=== PATIENT | male | born 1990 | race Caucasian/White ===

== ENCOUNTER 2017-04-01 12:15 | Emergency (ER) | payer SELFPAY ==
[2017-04-01] MEDS ORDERED: Lidocaine 2% Viscous Solution 15 ML Cup PO ONE (12:32)
[2017-04-01] MEDS ORDERED: Benzocaine 20% Topical Spray UD MUCMEM ONE (12:32)
--- NOTE | 2017-04-01 12:38 | EDM.PDOC ---
ED HPI GENERAL MEDICAL PROBLEM - General Chief Complaint: ENT Problem Stated Complaint: TOOTHACHE Time Seen by Provider: 04/01/17 12:33 Source of Information: Reports: Patient History Limitations: Reports: No Limitations - History of Present Illness INITIAL COMMENTS - FREE TEXT/NARRATIVE: HISTORY AND PHYSICAL: []27-year-old male presenting with tooth pain #32 History of Present Illness: []Patient was to the dentist 4 days ago and received antibiotics he has an appointment on 17 April for extraction presents because pain has been worsening and unable to sleep Review of Systems: As per history of present illness and below otherwise all systems reviewed and negative. Past medical history: As per history of present illness and as reviewed below otherwise noncontributory. Surgical history: As per history of present illness and as reviewed below otherwise noncontributory. Social history: No reported history of drug or alcohol abuse. Family history: As per history of present illness and as reviewed below otherwise noncontributory. Physical exam: Alert and oriented gentleman answering questions appropriately nontoxic in appearance HEENT: Atraumatic, normocehpalic, pupils reactive, negative for conjunctival pallor or scleral icterus, mucous membranes moist, throat clear, neck supple, nontender, trachea midline. Gumline is edematous and round tooth #32 Lungs: Clear to auscultation, breath sounds equal bilaterally, chest non tender. Heart: S1S2, regular, negative for clicks, rubs, or JVD. Abdomen: Soft, nondistended, nontender. Pelvis: Stable nontender. Genitourinary: Deferred. Rectal: Deferred Extremities: Atraumatic, negative for cords or calf pain. Neurovascular unremarkable. Neuro: Awake, alert, oriented. Cranial nerves II through XII unremarkable. Cerebellum unremarkable. Motor and sensory unremarkable throughout. Exam nonfocal. Diagnostics: [] Therapeutics: []Dental balls Impression: [Dental abscess] Plan: []Neurontin 300 mg 3 times a day when necessary Discharge to home Keep appointment with your dentist for tooth extraction Definitive disposition and diagnosis as appropriate pending reevaluation and review of above. Tooth/Teeth Pain Score (Numeric/FACES): 8 - Related Data Allergies Allergy/AdvReac Type Severity Reaction Status Date / Time No Known Allergies Allergy Verified 04/01/17 12:22 Home Meds: Home Meds Amoxicillin 250 mg PO DAILY 04/01/17 [History] Gabapentin [Neurontin] 300 mg PO TID #21 cap 04/01/17 [Rx] Past Medical History HEENT History: Reports: None Cardiovascular History: Reports: None Respiratory History: Reports: None Gastrointestinal History: Reports: Other (See Below) Other Gastrointestinal History: Ulcers Genitourinary History: Reports: None Musculoskeletal History: Reports: None Neurological History: Reports: None Psychiatric History: Reports: None Endocrine/Metabolic History: Reports: None Hematologic History: Reports: None Immunologic History: Reports: None Oncologic (Cancer) History: Reports: None Dermatologic History: Reports: None - Past Surgical History Head Surgeries/Procedures: Reports: None HEENT Surgical History: Reports: Tonsillectomy Cardiovascular Surgical History: Reports: None Respiratory Surgical History: Reports: None GI Surgical History: Reports: None Male Surgical History: Reports: None Endocrine Surgical History: Reports: None Neurological Surgical History: Reports: None Musculoskeletal Surgical History: Reports: None Oncologic Surgical History: Reports: None Dermatological Surgical History: Reports: None Social & Family History - Family History Family Medical History: Noncontributory - Tobacco Use Smoking Status *Q: Current Every Day Smoker Years of Tobacco use: 10 Packs/Tins Daily: 1 - Caffeine Use Caffeine Use: Reports: Coffee, Energy Drinks - Recreational Drug Use Recreational Drug Use: No ED ROS ENT - Review of Systems Review Of Systems: ROS reveals no pertinent complaints other than HPI. ED EXAM, ENT - Physical Exam Exam: See Below Course - Vital Signs Last Recorded V/S: Last Vital Signs Temp 36.6 C 04/01/17 12:23 Pulse 76 04/01/17 12:23 Resp 18 04/01/17 12:23 BP 150/95 H 04/01/17 12:23 Pulse Ox 97 04/01/17 12:23 - Orders/Labs/Meds Meds: Medications Discontinued Medications Generic Name Dose Route Start Last Admin Trade Name Freq PRN Reason Stop Dose Admin Benzocaine 2 each 04/01/17 12:32 Hurricaine One 20% MUCMEM 04/01/17 12:33 ONETIME ONE Lidocaine HCl 15 ml 04/01/17 12:32 Xylocaine 2% Viscous PO 04/01/17 12:33 ONETIME ONE Departure - Departure Time of Disposition: 12:38 Disposition: Home, Self-Care 01 Condition: Good Clinical Impression: Dental abscess - Discharge Information Prescriptions: Gabapentin [Neurontin] 300 mg PO TID #21 cap Referrals: PCP,None [Primary Care Provider] - Additional Instructions: The following information is given to patients seen in the emergency department who are being discharged to home. This information is to outline your options for follow-up care. We provide all patients seen in our emergency department with a follow-up referral. The need for follow-up, as well as the timing and circumstances, are variable depending upon the specifics of your emergency department visit. If you don't have a primary care physician on staff, we will provide you with a referral. We always advise you to contact your personal physician following an emergency department visit to inform them of the circumstance of the visit and for follow-up with them and/or the need for any referrals to a consulting specialist. The emergency department will also refer you to a specialist when appropriate. This referral assures that you have the opportunity for followup care with a specialist. All of these measure are taken in an effort to provide you with optimal care, which includes your followup. Under all circumstances we always encourage you to contact your private physician who remains a resource for coordinating your care. When calling for followup care, please make the office aware that this follow-up is from your recent emergency room visit. If for any reason you are refused follow-up, please contact the [facility] emergency department at and asked to speak to the emergency department charge nurse. Prescription has been electronically sent to [facility] Neurontin 300 mg up to 3 times daily as needed for pain
[2017-04-01 13:00] VITALS: BP 137/83
== END 2017-04-01 12:56 | disposition home or self-care (01) ==
LOC: MW.ED 12:15
DX: K04.7 Periapical abscess without sinus (principal); F17.210 Nicotine dependence, cigarettes, uncomplicated
CPT/HCPCS: 99283; A9270; 99282

== ENCOUNTER 2017-06-01 14:15 | Emergency (ER) | payer OTHER ==
[2017-06-01 14:51] VITALS: BP 148/78
[2017-06-01] MEDS ORDERED: Ketorolac 60 MG/2 ML SDV IM ONE (15:34)
--- NOTE | 2017-06-01 15:35 | EDM.PDOC ---
ED HPI GENERAL MEDICAL PROBLEM - General Chief Complaint: Back Pain or Injury Stated Complaint: BACK PROBLEMS Time Seen by Provider: 06/01/17 15:27 Source of Information: Reports: Patient History Limitations: Reports: No Limitations - History of Present Illness INITIAL COMMENTS - FREE TEXT/NARRATIVE: HISTORY AND PHYSICAL: []27-year-old male presenting with mid thoracic pain for last 3 months History of Present Illness: []Patient has been seen a chiropractor without any relief it has been increasing in intensity Patient states thatif the injury occurred Review of Systems: As per history of present illness and below otherwise all systems reviewed and negative. Past medical history: As per history of present illness and as reviewed below otherwise noncontributory. Surgical history: As per history of present illness and as reviewed below otherwise noncontributory. Social history: No reported history of drug or alcohol abuse. Family history: As per history of present illness and as reviewed below otherwise noncontributory. Physical exam: Alert and oriented man who answers questions appropriately in full sentences no shortness of breath. HEENT does increase with a deep breath taken HEENT: Atraumatic, normocehpalic, pupils reactive, negative for conjunctival pallor or scleral icterus, mucous membranes moist, throat clear, neck supple, nontender, trachea midline. Lungs: Clear to auscultation, breath sounds equal bilaterally, chest non tender. Heart: S1S2, regular, negative for clicks, rubs, or JVD. Abdomen: Soft, nondistended, nontender. Negative for masses or hepatossplenmegaly. Negative for costovertebral tenderness. Pelvis: Stable nontender. Genitourinary: Deferred. Rectal: Deferred Extremities: Atraumatic, negative for cords or calf pain. Neurovascular unremarkable. Neuro: Awake, alert, oriented. Cranial nerves II through XII unremarkable. Cerebellum unremarkable. Motor and sensory unremarkable throughout. Exam nonfocal. Diagnostics: [Thoracic spine x-rays] Therapeutics: [Toradol 60 IM] Impression: [Mid back pain] Plan: [Follow-up with physical therapy see your PCP] Definitive disposition and diagnosis as appropriate pending reevaluation and review of above. Back Pain Score (Numeric/FACES): 9 - Related Data Allergies Allergy/AdvReac Type Severity Reaction Status Date / Time No Known Allergies Allergy Verified 06/01/17 14:52 Home Meds: Home Meds Diclofenac Potassium [Zipsor] 25 mg PO TID PRN #12 capsule 06/01/17 [Rx] Past Medical History HEENT History: Reports: None Cardiovascular History: Reports: None Respiratory History: Reports: None Gastrointestinal History: Reports: Other (See Below) Other Gastrointestinal History: Ulcers Genitourinary History: Reports: None Musculoskeletal History: Reports: None Neurological History: Reports: None Psychiatric History: Reports: None Endocrine/Metabolic History: Reports: None Hematologic History: Reports: None Immunologic History: Reports: None Oncologic (Cancer) History: Reports: None Dermatologic History: Reports: None - Past Surgical History Head Surgeries/Procedures: Reports: None HEENT Surgical History: Reports: Tonsillectomy Cardiovascular Surgical History: Reports: None Respiratory Surgical History: Reports: None GI Surgical History: Reports: None Male Surgical History: Reports: None Endocrine Surgical History: Reports: None Neurological Surgical History: Reports: None Musculoskeletal Surgical History: Reports: None Oncologic Surgical History: Reports: None Dermatological Surgical History: Reports: None Social & Family History - Family History Family Medical History: Noncontributory - Tobacco Use Smoking Status *Q: Current Every Day Smoker Years of Tobacco use: 10 Packs/Tins Daily: 1 Used Tobacco, but Quit: No - Caffeine Use Caffeine Use: Reports: None - Recreational Drug Use Recreational Drug Use: No ED ROS GENERAL - Review of Systems Review Of Systems: ROS reveals no pertinent complaints other than HPI. ED EXAM,LOWER BACK PAIN/INJURY - Physical Exam Exam: See Below (see dictation) Course - Vital Signs Last Recorded V/S: Last Vital Signs Temp 36.6 C 06/01/17 14:50 Pulse 86 06/01/17 14:50 Resp 18 06/01/17 14:50 BP 148/78 H 06/01/17 14:50 Pulse Ox 98 06/01/17 14:50 - Orders/Labs/Meds Orders: Active Orders 24 hr Category Date Time Status Thoracic Spine 3V [CR] Stat Exams 06/01/17 15:37 Taken Meds: Medications Discontinued Medications Generic Name Dose Route Start Last Admin Trade Name Freq PRN Reason Stop Dose Admin Ketorolac Tromethamine 60 mg 06/01/17 15:34 06/01/17 15:48 Toradol IM 06/01/17 15:35 60 mg ONETIME ONE Administration Departure - Departure Time of Disposition: 16:57 Disposition: Home, Self-Care 01 Condition: Good Clinical Impression: Mid back pain - Discharge Information Prescriptions: Diclofenac Potassium [Zipsor] 25 mg PO TID PRN #12 capsule PRN Reason: Pain (Moderate 4-6) Referrals: PCP,None [Primary Care Provider] - Forms: ED Department Discharge - My Orders Last 24 Hours: My Active Orders 06/01/17 15:37 Thoracic Spine 3V [CR] Stat - Assessment/Plan Last 24 Hours: My Active Orders 06/01/17 15:37 Thoracic Spine 3V [CR] Stat
--- NOTE | 2017-06-03 05:56 | CR ---
EXAM DATE: 06/01/17 PATIENT'S AGE: 27 Patient: PAUL GARCIA Facility: [place], [place] Site . Site : 1991 Study: XRay Spine Thoracic [id number]/[id number] 4:06:00 PM Ordering Physician: Doctor Dietz Final Report: HISTORY: T4 and T5 pain. No injury. FINDINGS: AP, lateral and swimmer`s lateral views of the thoracic spine demonstrates the disc spaces and vertebral body heights are maintained. Alignment is normal. Bone mineralization is normal. IMPRESSION: No acute bony abnormality in the thoracic spine. Dictated by Eliana Kenyon MD @ 06/01/2017 4:22:36 PM Dictated by: Eliana Kenyon MD @ 06/01/2017 16:23:00 (Electronic Signature) Report Signed by Proxy. [email or web address]
== END 2017-06-01 17:25 | disposition home or self-care (01) ==
LOC: MW.ED 14:15
DX: M54.6 Pain in thoracic spine (principal); F17.210 Nicotine dependence, cigarettes, uncomplicated
CPT/HCPCS: 72072; 96372; 99283; J1885; 99284

== ENCOUNTER 2018-11-29 16:36 | Observation (INO) | payer SELFPAY ==
[2018-11-29] MEDS ORDERED: Ketorolac 30 MG/ML SDV IVPUSH ONE (16:39)
[2018-11-29] MEDS ORDERED: Pantoprazole 40 MG Vial IVPUSH ONE (16:39)
[2018-11-29] MEDS ORDERED: Sodium Chloride 0.9% 1,000 ML IV ONE ×2 (16:39→17:44)
[2018-11-29] MEDS ORDERED: Ondansetron 4 MG/2 ML SDV IVPUSH ONE (16:39)
--- NOTE | 2018-11-29 16:40 | EDM.PDOC ---
<Samuel Biggs - Last Filed: 11/29/18 17:07> ED HPI GENERAL MEDICAL PROBLEM - General Chief Complaint: Gastrointestinal Problem Stated Complaint: STOMACH PAIN Time Seen by Provider: 11/29/18 16:39 Source of Information: Reports: Patient - History of Present Illness INITIAL COMMENTS - FREE TEXT/NARRATIVE: HISTORY AND PHYSICAL: History of present illness: [Patient presents with abdominal pain, he has a history of Crohn's disease, pain is 5 out of 10, he is been on tramadol prednisone and Benadryl without much relief he is waiting for insurance at which time he will start Humira is under the care of a GI specialist out of [place], he anticipates getting insurance in approximately one week Denies fever nausea vomiting chills sweats no chest pain shortness breath headache dizziness palpitation no urine symptoms Patient has been out of tramadol and prednisone since ] Review of systems: As per history of present illness and below otherwise all systems reviewed and negative. Past medical history: As per history of present illness and as reviewed below otherwise noncontributory. Surgical history: As per history of present illness and as reviewed below otherwise noncontributory. Social history: No reported history of drug or alcohol abuse. Family history: As per history of present illness and as reviewed below otherwise noncontributory. Physical exam: HEENT: Atraumatic, normocephalic, pupils reactive, negative for conjunctival pallor or scleral icterus, mucous membranes moist, throat clear, neck supple, nontender, trachea midline. Lungs: Clear to auscultation, breath sounds equal bilaterally, chest nontender. Heart: S1S2, regular, negative for clicks, rubs, or JVD. Abdomen: Soft, nondistended, nonfocal abdominal tenderness. Negative for masses or hepatosplenomegaly. Negative for costovertebral tenderness. Pelvis: Stable nontender. Genitourinary: Deferred. Rectal: Deferred. Extremities: Atraumatic, negative for cords or calf pain. Neurovascular unremarkable. Neuro: Awake, alert, oriented. Cranial nerves II through XII unremarkable. Cerebellum unremarkable. Motor and sensory unremarkable throughout. Exam nonfocal. Diagnostics: [CBC CMP UA lipase ] Therapeutics: [Normal saline Toradol Zofran Proton X ] Impression: [ abdominal pain ] History of Crohn's disease Definitive disposition and diagnosis as appropriate pending reevaluation and review of above. Lower Abdominal Pain Score (Numeric/FACES): 8 - Related Data Allergies Allergy/AdvReac Type Severity Reaction Status Date / Time No Known Allergies Allergy Verified 11/29/18 16:50 Home Meds: Home Meds Dicyclomine [Bentyl] 20 mg PO DAILY 11/29/18 [History] predniSONE [Prednisone] 20 mg PO DAILY 11/29/18 [History] traMADol [Ultram] 5 mg PO BID PRN 11/29/18 [History] Past Medical History HEENT History: Reports: None Cardiovascular History: Reports: None Respiratory History: Reports: None Gastrointestinal History: Reports: Other (See Below) Other Gastrointestinal History: Ulcers Genitourinary History: Reports: None Musculoskeletal History: Reports: None Neurological History: Reports: None Psychiatric History: Reports: None Endocrine/Metabolic History: Reports: None Hematologic History: Reports: None Immunologic History: Reports: None Oncologic (Cancer) History: Reports: None Dermatologic History: Reports: None - Past Surgical History Head Surgeries/Procedures: Reports: None HEENT Surgical History: Reports: Tonsillectomy Cardiovascular Surgical History: Reports: None Respiratory Surgical History: Reports: None GI Surgical History: Reports: None Male Surgical History: Reports: None Endocrine Surgical History: Reports: None Neurological Surgical History: Reports: None Musculoskeletal Surgical History: Reports: None Oncologic Surgical History: Reports: None Dermatological Surgical History: Reports: None Social & Family History - Family History Family Medical History: Noncontributory - Caffeine Use Caffeine Use: Reports: None Course - Vital Signs Last Recorded V/S: Last Vital Signs Temp 36.6 C 11/29/18 16:51 Pulse 72 11/29/18 17:50 Resp 16 11/29/18 17:50 BP 104/61 11/29/18 17:50 Pulse Ox 100 11/29/18 17:50 - Orders/Labs/Meds Labs: Laboratory Tests 11/29/18 11/29/18 11/29/18 Range/Units 17:00 17:00 17:00 WBC 13.84 H (4.0-11.0) K/uL RBC 5.17 (4.50-5.90) M/uL Hgb 15.1 (13.0-17.0) g/dL Hct 45.5 (38.0-50.0) % MCV 88.0 (80.0-98.0) fL MCH 29.2 (27.0-32.0) pg MCHC 33.2 (31.0-37.0) g/dL RDW Std Deviation 49.1 (28.0-62.0) fl RDW Coeff of Juan David 15 (11.0-15.0) % Plt Count 346 (150-400) K/uL MPV 10.40 (7.40-12.00) fL Neut % (Auto) 60.7 (48.0-80.0) % Lymph % (Auto) 20.2 (16.0-40.0) % [place] % (Auto) 3.1 (0.0-15.0) % Eos % (Auto) 15.1 H (0.0-7.0) % Baso % (Auto) 0.9 (0.0-1.5) % Neut # (Auto) 8.4 H (1.4-5.7) K/uL Lymph # (Auto) 2.8 H (0.6-2.4) K/uL [place] # (Auto) 0.4 (0.0-0.8) K/uL Eos # (Auto) 2.1 H (0.0-0.7) K/uL Baso # (Auto) 0.1 (0.0-0.1) K/uL Nucleated RBC % 0.0 /100WBC Nucleated RBCs # 0 K/uL ESR 1 (0-14) mm/hr Sodium 140 (136-148) mmol/L Potassium 3.9 (3.5-5.1) mmol/L Chloride 103 (98-107) mmol/L Carbon Dioxide 27.9 (21.0-32.0) mmol/L BUN 14 (7.0-18.0) mg/dL Creatinine 0.9 (0.8-1.3) mg/dL Est Cr Clr Drug Dosing 123.29 mL/min Estimated GFR (MDRD) > 60.0 ml/min Glucose 97 (74-106) mg/dL Calcium 9.1 (8.5-10.1) mg/dL Total Bilirubin 0.3 (0.2-1.0) mg/dL AST 15 (15-37) IU/L ALT 19 (14-63) IU/L Alkaline Phosphatase 99 (46-116) U/L C-Reactive Protein (0.00-0.90) mg/dL Total Protein 8.1 (6.4-8.2) g/dL Albumin 4.1 (3.4-5.0) g/dL Globulin 4.0 (2.6-4.0) g/dL Albumin/Globulin Ratio 1.0 (0.9-1.6) Lipase 83 (73-393) U/L Urine Color Urine Appearance Urine pH (5.0-8.0) Ur Specific [place] (1.001-1.035) Urine Protein (NEGATIVE) mg/dL Urine Glucose (UA) (NEGATIVE) mg/dL Urine Ketones (NEGATIVE) mg/dL Urine Occult Blood (NEGATIVE) Urine Nitrite (NEGATIVE) Urine Bilirubin (NEGATIVE) Urine Urobilinogen (<2.0) EU/dL Ur Leukocyte Esterase (NEGATIVE) Urine Opiates Screen (NEGATIVE) Ur Oxycodone Screen (NEGATIVE) Urine Methadone Screen (NEGATIVE) Ur Barbiturates Screen (NEGATIVE) Ur Phencyclidine Scrn (NEGATIVE) Ur Amphetamine Screen (NEGATIVE) U Methamphetamines Scrn (NEGATIVE) U Benzodiazepines Scrn (NEGATIVE) U Cocaine Metab Screen (NEGATIVE) U Marijuana (THC) Screen (NEGATIVE) 11/29/18 11/29/18 11/29/18 Range/Units 17:00 18:20 18:20 WBC (4.0-11.0) K/uL RBC (4.50-5.90) M/uL Hgb (13.0-17.0) g/dL Hct (38.0-50.0) % MCV (80.0-98.0) fL MCH (27.0-32.0) pg MCHC (31.0-37.0) g/dL RDW Std Deviation (28.0-62.0) fl RDW Coeff of [place] (11.0-15.0) % Plt Count (150-400) K/uL MPV (7.40-12.00) fL Neut % (Auto) (48.0-80.0) % Lymph % (Auto) (16.0-40.0) % [place] % (Auto) (0.0-15.0) % Eos % (Auto) (0.0-7.0) % Baso % (Auto) (0.0-1.5) % Neut # (Auto) (1.4-5.7) K/uL Lymph # (Auto) (0.6-2.4) K/uL [place] # (Auto) (0.0-0.8) K/uL Eos # (Auto) (0.0-0.7) K/uL Baso # (Auto) (0.0-0.1) K/uL Nucleated RBC % /100WBC Nucleated RBCs # K/uL ESR (0-14) mm/hr Sodium (136-148) mmol/L Potassium (3.5-5.1) mmol/L Chloride (98-107) mmol/L Carbon Dioxide (21.0-32.0) mmol/L BUN (7.0-18.0) mg/dL Creatinine (0.8-1.3) mg/dL Est Cr Clr Drug Dosing mL/min Estimated GFR (MDRD) ml/min Glucose (74-106) mg/dL Calcium (8.5-10.1) mg/dL Total Bilirubin (0.2-1.0) mg/dL AST (15-37) IU/L ALT (14-63) IU/L Alkaline Phosphatase (46-116) U/L C-Reactive Protein 1.20 H (0.00-0.90) mg/dL Total Protein (6.4-8.2) g/dL Albumin (3.4-5.0) g/dL Globulin (2.6-4.0) g/dL Albumin/Globulin Ratio (0.9-1.6) Lipase (73-393) U/L Urine Color YELLOW Urine Appearance CLEAR Urine pH 6.0 (5.0-8.0) Ur Specific [place] <= 1.005 (1.001-1.035) Urine Protein NEGATIVE (NEGATIVE) mg/dL Urine Glucose (UA) NEGATIVE (NEGATIVE) mg/dL Urine Ketones NEGATIVE (NEGATIVE) mg/dL Urine Occult Blood NEGATIVE (NEGATIVE) Urine Nitrite NEGATIVE (NEGATIVE) Urine Bilirubin NEGATIVE (NEGATIVE) Urine Urobilinogen 0.2 (<2.0) EU/dL Ur Leukocyte Esterase NEGATIVE (NEGATIVE) Urine Opiates Screen NEGATIVE (NEGATIVE) Ur Oxycodone Screen NEGATIVE (NEGATIVE) Urine Methadone Screen NEGATIVE (NEGATIVE) Ur Barbiturates Screen NEGATIVE (NEGATIVE) Ur Phencyclidine Scrn NEGATIVE (NEGATIVE) Ur Amphetamine Screen NEGATIVE (NEGATIVE) U Methamphetamines Scrn NEGATIVE (NEGATIVE) U Benzodiazepines Scrn NEGATIVE (NEGATIVE) U Cocaine Metab Screen NEGATIVE (NEGATIVE) U Marijuana (THC) Screen NEGATIVE (NEGATIVE) Meds: Medications Discontinued Medications Generic Name Dose Route Start Last Admin Trade Name Freq PRN Reason Stop Dose Admin Sodium Chloride 1,000 mls @ 999 mls/hr 11/29/18 16:39 11/29/18 17:13 Normal Saline IV 11/29/18 17:39 999 mls/hr STAT ONE Administration Sodium Chloride Confirm 11/29/18 17:03 11/29/18 17:13 Normal Saline Administered 11/29/18 17:04 Not Given Dose 20 mls @ as directed .ROUTE .STK-MED ONE Sodium Chloride 1,000 mls @ 999 mls/hr 11/29/18 17:44 11/29/18 17:50 Normal Saline IV 11/29/18 18:44 999 mls/hr .Bolus ONE Administration Iopamidol 100 ml 11/29/18 18:19 11/29/18 18:20 Isovue Multipack-370 (76%) IVPUSH 11/29/18 18:20 100 ml ONETIME ONE Administration Ketorolac Tromethamine 30 mg 11/29/18 16:39 11/29/18 17:12 Toradol IVPUSH 11/29/18 16:40 30 mg ONETIME ONE Administration Methylprednisolone Sodium Succinate 125 mg 11/29/18 17:08 11/29/18 17:24 Solu-Medrol IVPUSH 11/29/18 17:09 125 mg ONETIME ONE Administration Ondansetron HCl 8 mg 11/29/18 16:39 11/29/18 17:13 Zofran IVPUSH 11/29/18 16:40 8 mg ONETIME ONE Administration Pantoprazole Sodium 80 mg 11/29/18 16:39 11/29/18 17:13 Protonix Iv IVPUSH 11/29/18 16:40 80 mg .BOLUS ONE Administration Sodium Chloride 20 ml 11/29/18 16:50 11/29/18 17:13 Normal Saline IV 11/29/18 16:51 20 ml ONETIME STA Administration Departure - Departure Disposition: Home, Self-Care 01 Clinical Impression: Vomiting - Discharge Information Referrals: PCP,Unknown [Primary Care Provider] - Forms: ED Department Discharge Additional Instructions: The following information is given to patients seen in the emergency department who are being discharged to home. This information is to outline your options for follow-up care. We provide all patients seen in our emergency department with a follow-up referral. The need for follow-up, as well as the timing and circumstances, are variable depending upon the specifics of your emergency department visit. If you don't have a primary care physician on staff, we will provide you with a referral. We always advise you to contact your personal physician following an emergency department visit to inform them of the circumstance of the visit and for follow-up with them and/or the need for any referrals to a consulting specialist. The emergency department will also refer you to a specialist when appropriate. This referral assures that you have the opportunity for followup care with a specialist. All of these measure are taken in an effort to provide you with optimal care, which includes your followup. Under all circumstances we always encourage you to contact your private physician who remains a resource for coordinating your care. When calling for followup care, please make the office aware that this follow-up is from your recent emergency room visit. If for any reason you are refused follow-up, please contact the [facility] emergency department at and asked to speak to the emergency department charge nurse. [facility] [address] [place] [id number] Push fluids clear liquids as discussed avoid dairy products. Stop using marijuana as discussed follow-up with primary care or private medical doctor as discussed return as needed as discussed <Jeremy Washington - Last Filed: 11/29/18 19:31> ED ROS GENERAL - Review of Systems Review Of Systems: ROS reveals no pertinent complaints other than HPI. ED EXAM, GENERAL - Physical Exam Exam: See Below (dictation) Course - Vital Signs Text/Narrative:: Patient emergency normal courses been unremarkable diagnostics have been reviewed on reevaluation patient's markedly improved and agrees with discharge with follow-up we discussed not using marijuana or other illegal drugs in follow -up. Patient discharged with diagnosis of vomiting Departure - Departure Time of Disposition: 19:30 Condition: Good
[2018-11-29] MEDS ORDERED: Sodium Chloride 0.9% 10 ML SDV IV STA (16:50)
[2018-11-29] MEDS ORDERED: Sodium Chloride 0.9% 20 ML ONE (17:03)
[2018-11-29] MEDS ORDERED: methylPREDNISolone Sodium Succinate 125 MG/2 ML SDV IVPUSH ONE (17:08)
[2018-11-29 17:31] LABS: CHLORIDE,CL 103 mmol/L (98-107); SODIUM,NA 140 mmol/L (136-148)
[2018-11-29] MEDS ORDERED: Iopamidol 755 MG/ML 500 ML Multipack Bottle IVPUSH ONE (18:19)
--- NOTE | 2018-11-29 18:38 | CT ---
INDICATION: Lower abdominal pain. History of Crohn`s inflammatory bowel disease. COMPARISON: None provided. TECHNIQUE: 100 mL Isovue-370 IV contrast. FINDINGS: Visualized lung bases are clear. Solid viscera are unremarkable. Gallbladder and biliary ducts are unremarkable. No nephrolithiasis. Extrarenal pelvic configuration bilaterally. Mucosal enhancement and edematous wall thickening of the final roughly 15-20 cm of terminal ileum. Adjacent appendix is normal. Vascular congestion appearance of the vascular arcade to the affected terminal ileum. Redundant sigmoid colon. Moderate volume of stool throughout the colon. No other inflammatory enteritis or colitis. Upper normal size and number of reactive mesenteric lymph nodes, particular in the right lower quadrant. No extra luminal organized fluid in the peritoneum. No peritoneal free air. IMPRESSION: Moderate length of acute inflammatory enteritis of the terminal ileum commensurate with Crohn`s. Please note that all CT scans at this facility use dose modulation, iterative reconstruction, and/or weight-based dosing when appropriate to reduce radiation dose to as low as reasonably achievable. Dictated by Thomas Altman MD @ Nov 29 2018 6:32PM Signed by Dr. Thomas Altman @ Nov 29 2018 6:35PM
[2018-11-29 20:00] VITALS: BP 137/76
== END 2018-11-29 19:55 ==
LOC: MW.ED 16:36 → MW.MS 19:43
PROVIDERS: ADMIT Internal Medicine; ATTEND Internal Medicine
DX: K50.00 Crohn's disease of small intestine without complications (principal); F17.210 Nicotine dependence, cigarettes, uncomplicated; Z79.899 Other long term (current) drug therapy; Z87.11 Personal history of peptic ulcer disease; Z98.890 Other specified postprocedural states
CPT/HCPCS: 36415; 74177; 80053; 80305; 81003; 83690; 85025; 85652; 86140; 96361; 96374; 96375; 99284; C9113; J1885; J2405; J2930; J7040; J7050; Q9967